=== PATIENT | female | born 1960 | race American Indian/Alaskan Native ===

== ENCOUNTER 2021-11-17 08:52 | Outpatient (CLI) | payer OTHER ==
--- NOTE | 2021-11-17 10:43 | XRay Report ---
RIGHT SHOULDER 3 VIEW(S) INDICATION / CLINICAL INFORMATION: RIGHT SHOULDER PAIN COMPARISON: None available. FINDINGS: BONES / JOINT(S): No acute fracture or subluxation. There is mild degenerative change in the glenohum eral joint and in the AC joint. There are inferior projecting osteophytes from the acromion. SOFT TISSUES: There are small dystrophic calcifications in the upper arm. ADDITIONAL FINDINGS: None. Signer Name: Timothy Quiles MD Signed: 11/17/2021 10:39 AM Workstation Name: [id number]
== END 2021-11-17 08:53 | disposition home or self-care (01) ==
LOC: XRAY 08:52
PROVIDERS: ATTEND Internal Medicine
DX: Z02.71 Encounter for disability determination (principal); M19.011 Primary osteoarthritis, right shoulder; M25.811 Other specified joint disorders, right shoulder